=== PATIENT | female | born 1990 | race Caucasian/White ===

== ENCOUNTER → 2017-09-27 | Outpatient (CLI) | payer OTHER ==
[~2017-09-27] MED LIST: NKHM; PERCOCET 325 MG1 TA5 PO
== END | disposition home or self-care (01) ==
LOC: RAD 16:48
DX: R06.02 Shortness of breath (principal)

== ENCOUNTER 2017-11-12 19:13 | Emergency (ER) | payer OTHER ==
[~2017-11-12] VITALS: Ht 157.4 cm; Wt 68.0 kg
[2017-11-12 19:18] VITALS: BP 124/67
== END 2017-11-12 20:20 | disposition home or self-care (01) ==
LOC: ED 19:13
DX: S60.042A Contusion of left ring finger without damage to nail, initial encounter (principal); W21.07XA Struck by softball, initial encounter; Y93.64 Activity, baseball; Y92.89 Other specified places as the place of occurrence of the external cause; Y99.9 Unspecified external cause status

== ENCOUNTER 2018-03-31 02:43 | Emergency (ER) | payer OTHER ==
[~2018-03-31] VITALS: Wt 77.1 kg
[2018-03-31 02:44] VITALS: BP 152/88
[2018-03-31] MEDS ORDERED: LEVOTHYROXINE50 MCG PO (03:07)
[2018-03-31] MEDS ORDERED: PROZAC10 MG PO (03:07)
[2018-03-31] MEDS ORDERED: PHENTERMINE H37.5 M1 PO (03:07)
[2018-03-31] MEDS ORDERED: ZITHROMAX250 MG PO (03:26)
[2018-03-31] MEDS ORDERED: TESSALON PERLE100 M1 PO (03:26)
[2018-03-31] MEDS ORDERED: CLARITIN10 MG PO (03:26)
== END 2018-03-31 03:53 | disposition home or self-care (01) ==
LOC: ED 02:43
DX: H66.92 Otitis media, unspecified, left ear (principal); J01.90 Acute sinusitis, unspecified; J20.9 Acute bronchitis, unspecified; Z79.899 Other long term (current) drug therapy

== ENCOUNTER 2018-04-02 20:51 | Emergency (ER) | payer OTHER ==
[~2018-04-02 20:51] MED LIST changes: +CLARITIN10 MG PO; +LEVOTHYROXINE50 MCG PO; +PHENTERMINE H37.5 M1 PO; +PROZAC10 MG PO; +TESSALON PERLE100 M1 PO; +ZITHROMAX250 MG PO
[2018-04-02 22:43] VITALS: BP 129/85
== END 2018-04-02 22:44 | disposition home or self-care (01) ==
LOC: ED 20:51
DX: S00.33XA Contusion of nose, initial encounter (principal); Z79.899 Other long term (current) drug therapy; W50.0XXA Accidental hit or strike by another person, initial encounter; Y93.61 Activity, american tackle football; Y92.89 Other specified places as the place of occurrence of the external cause; Y99.8 Other external cause status

== ENCOUNTER 2018-12-04 09:27 | Emergency (ER) | payer OTHER ==
[~2018-12-04] VITALS: Ht 157.4 cm; Wt 74.8 kg
[2018-12-04 09:27] VITALS: BP 134/82
[2018-12-04] MEDS ORDERED: IBUPROFEN600 MG PO (10:48)
== END 2018-12-04 10:53 | disposition home or self-care (01) ==
LOC: ED 09:27
DX: J02.9 Acute pharyngitis, unspecified (principal); R59.0 Localized enlarged lymph nodes; Z79.899 Other long term (current) drug therapy